=== PATIENT | male | born 1970 | race Caucasian/White ===

== ENCOUNTER 2018-08-21 22:13 | Emergency (ER) | payer MEDICAID ==
[~2018-08-21] VITALS: Ht 162.6 cm; Wt 65.8 kg
[2018-08-21 22:50] VITALS: Ht 162.6 cm; Wt 65.8 kg
[2018-08-22 00:47] VITALS: BP 126/77
== END 2018-08-22 00:47 | disposition home or self-care (01) ==
LOC: ED 22:13
DX: S09.8XXA Other specified injuries of head, initial encounter (principal); J45.909 Unspecified asthma, uncomplicated; V28.4XXA Motorcycle driver injured in noncollision transport accident in traffic accident, initial encounter; Y93.I9 Activity, other involving external motion; Y92.488 Other paved roadways as the place of occurrence of the external cause; Y99.8 Other external cause status